=== PATIENT | male | born 1950 | race Caucasian/White ===

== ENCOUNTER 2016-11-29 10:53 | Day surgery (SDC) | payer MEDICARE ==
[~2016-11-29] VITALS: Ht 175.3 cm; Wt 81.0 kg
[~2016-11-29 10:53] MED LIST: 0.9% Sodium Chloride 1,000 ML IV SCH; ALBU18HF INH; ASPI-973 PO; HYDR25TA4 PO; LIP20 PO; LISI10TA PO; MULT-1018 PO; Sodium Chloride LOK Flush 10 mL Syringe IV PRN; fentaNYL-PF 50 mCg/mL 2 mL Inj IVPUSH PRN
[2016-11-29 11:11] VITALS: BP 155/75; PULSE 55; RESP 14; O2SAT 98
[2016-11-29] MEDS ORDERED: OMEG500C PO (11:19)
[2016-11-29] MEDS ORDERED: LISI10TA PO (11:20)
[2016-11-29] MEDS ORDERED: ATOR20TA PO (11:20)
[2016-11-29 13:05] VITALS: BP 167/71; PULSE 57; RESP 16; O2SAT 93
[2016-11-29 13:15] VITALS: BP 181/77; PULSE 54; RESP 16; O2SAT 93
[2016-11-29 13:25] VITALS: BP 171/75; PULSE 59; RESP 16; O2SAT 97
[2016-11-29 13:35] VITALS: BP 155/72; PULSE 49; RESP 16; O2SAT 94
--- NOTE | 2016-11-29 14:44 | ENDO ---
[address] [address] ENDOSCOPY PROCEDURE PATIENT: RORY LIU : 1950 MR#: [id number] ADMIT: 11/29/2016 JOB ID: [id number] DATE: 11/29/2016 PRIMARY PROVIDER: Surekha Neri MD PROCEDURE: Colonoscopy with hot snare polypectomy. INDICATIONS: This is a 66-year-old male with a personal history of colon polyp returning for surveillance. He has experienced some intermittent urgency of late in the last six months. EQUIPMENT: PCF H 180 AL. SEDATION: 1. 6 mg Versed. 2. 100 mcg fentanyl. COMPLICATIONS: None identified. BOWEL PREPARATION: Fair at best. PROCEDURAL INFORMATION: After the risks and benefits were explained, written and verbal informed consent was obtained. The patient was brought into the endoscopy suite, placed into the left lateral decubitus position. Sedation was achieved as above. A digital rectal examination was accomplished and revealed the presence of some prostate enlargement. The scope was introduced into the rectum and advanced to the cecum as identified by the appendiceal orifice and ileocecal valve. The scope was slowly withdrawn to carefully examine the mucosa for any defects or lesions. Multiple direct views were made through the dentate line for exclusion of pathology. The colon was decompressed. The scope removed from the patient who tolerated the procedure well. FINDINGS: In the left colon, there was a small perhaps 5 mm polyp removed with hot snare. There was extensive diverticulosis and a moderately twisty sigmoid region. No other significant mucosal pathology was appreciated throughout. ENDOSCOPIC DIAGNOSES: 1. Colon polyp. 2. Diverticulosis. 3. Prostatic enlargement. RECOMMENDATIONS: 1. Await histopathology. 2. Repeat colonoscopy five years. 3. Followup on prostate health in primary care. 4. To help with bowel regimen improvement, I would recommend 2 tablespoons of ground flaxseed fiber mixed with 8 ounces of water or juice at least once or twice daily.
--- NOTE | 2016-11-30 14:14 | PATH ---
SURGICAL PATHOLOGY Attending Physician:Errol Gil CASE STATUS: Signed Out PATIENT NAME: RORY LIU PID: [id number] : 1950 DATE COLLECTED:11/29/2016 22:43 SPECIMEN: Colon, Biopsy CLINICAL HISTORY: 1). COLON POLYP X1 FINAL DIAGNOSIS: Colon Polyp: Tubular adenoma. ICD10: D12.6 GROSS DESCRIPTION: The specimen is received in one formalin filled container labeled with the patient's name, sublabeled "colon polyp" and consists of a 0.3 x 0.3 x 0.2 CM portion of tissue which is entirely submitted in one cassette. 11/29/2016 [facility] ICD-9 CODES: CPT CODES: 1: 59418 Electronically Signed Out Jayden Iyer MD [facility] Pathology [facility] [address], [place] [address] Technical component performed at [facility], [facility] [address], [place], [address]
== END 2016-11-29 23:59 | disposition home or self-care (01) ==
LOC: END 10:53
PROVIDERS: ATTEND Internal Medicine Gastroenterology
DX: Z12.11 Encounter for screening for malignant neoplasm of colon (principal); Z86.010 Personal history of colon polyps; D12.4 Benign neoplasm of descending colon; K57.30 Diverticulosis of large intestine without perforation or abscess without bleeding; N40.1 Benign prostatic hyperplasia with lower urinary tract symptoms; R39.15 Urgency of urination; I10 Essential (primary) hypertension; E78.5 Hyperlipidemia, unspecified; I73.9 Peripheral vascular disease, unspecified; R13.10 Dysphagia, unspecified; F17.210 Nicotine dependence, cigarettes, uncomplicated; Z79.82 Long term (current) use of aspirin; Z85.72 Personal history of non-Hodgkin lymphomas; Z95.820 Peripheral vascular angioplasty status with implants and grafts; Z85.810 Personal history of malignant neoplasm of tongue
CPT/HCPCS: 45385; 88305; 99153; G0500; J7030